=== PATIENT | male | born 1960 | race African-American/Black ===

== ENCOUNTER 2017-01-15 09:42 | Inpatient (IN) | payer BC, MEDICAID ==
[~2017-01-15] VITALS: Ht 175.3 cm; Wt 145.1 kg
[~2017-01-15 09:42] MED LIST: ABIL5; CEPH500C2 PO
[2017-01-15] MEDS ORDERED: ONDANSETRON HCL 4MG/2ML VIAL IV STA (10:52)
[2017-01-15] MEDS ORDERED: SODIUM CHLORIDE 0.9% 1,000 ML IV ONE (10:52)
[2017-01-15] MEDS ORDERED: MORPHINE SULFATE 4 MG/ML CPJ (NOT FOR IM USE) IV STA (10:52)
[2017-01-15] MEDS ORDERED: PIPERACILLIN/TAZ 3.375G PREMIX 50 ML IV ONE (11:00)
[2017-01-15] MEDS ORDERED: VANCOMYCIN 1 G PREMIX 200 ML IV ONE (11:00)
[2017-01-15 11:59] LABS: BASOPHILS % 0.5 % (0.0-2.0); EOSINOPHILS % 2.2 % (0.0-5.0); HEMATOCRIT. 30.5 % (42.0-52.0); HEMOGLOBIN. 9.7 g/dL (14.0-18.0); LYMPHOCYTES % 23.1 % (20.0-50.0); MEAN CORPUSCULAR HEMOGLOBIN 24.5 pg (28.0-32.0); MEAN CORPUSCULAR VOLUME 77.1 fL (80.0-94.0); MEAN PLATELET VOLUME 8.1 fl (7.4-10.4); MONOCYTES % 9.3 % (2.0-8.0); NEUTROPHILS % 64.9 % (40.0-76.0); PLATELET 262 x1000/uL (130-400); RED BLOOD CELL COUNT 3.96 mill/uL (4.7-6.1); RED CELL DISTRIBUTION WIDTH 17.5 % (11.6-14.6)
[2017-01-15 12:10] LABS: CARBON DIOXIDE 30 mEq/L (21-32); CHLORIDE 104 mEq/L (98-107)
[2017-01-15 12:15] LABS: INR 1.1
[2017-01-15 13:07] LABS: CLARITY URINE CLEAR (CLEAR); COLOR URINE YELLOW (YELLOW); GLUCOSE URINE NEGATIVE (NEGATIVE); KETONES URINE NEGATIVE (NEGATIVE); LEUKOCYTE ESTERASE URINE TRACE (NEGATIVE); NITRITE URINE NEGATIVE (NEGATIVE); OCCULT BLOOD URINE NEGATIVE (NEGATIVE); PH URINE 6.5 (4.5-8.0); PROTEIN URINE NEGATIVE (NEGATIVE); SPECIFIC GRAVITY URINE 1.016 (1.005-1.030)
[2017-01-15] MEDS: POTASSIUM CHLORIDE 20MEQ TABLET SR PO NR ×3 (15:10→16:30)
[2017-01-15 21:42] VITALS: BP 162/84
[2017-01-16] VITALS (7 sets, daily range): BP systolic 123–162; BP diastolic 54–84
[2017-01-16] MEDS ORDERED: LORAZEPAM 2MG/ML CPJ IV PRN
[2017-01-16] MEDS ORDERED: CLONIDINE 0.1MG TABLET PO PRN
[2017-01-16] MEDS ORDERED: ONDANSETRON HCL 4MG/2ML VIAL IV PRN
[2017-01-16] MEDS ORDERED: HYDROCODONE/ACETAMINOPHEN 5/325MG TABLET PO PRN
[2017-01-16] MEDS ORDERED: VANCOMYCIN 1 G PREMIX 200 ML IV SCH (05:00)
[2017-01-16 08:26] LABS: *AMPHETAMINES SCREEN URINE NEGATIVE (NEGATIVE); *BARBITURATES SCREEN URINE NEGATIVE (NEGATIVE); *BENZODIAZEPINES SCREEN URINE NEGATIVE (NEGATIVE); *COCAINE SCREEN URINE NEGATIVE (NEGATIVE); CANNABINOID URINE SCREEN NEGATIVE (NEGATIVE); METHADONE URINE SCREEN NEGATIVE (NEGATIVE); OPIATES URINE SCREEN PRESUMTIVE POSITIVE (NEGATIVE); PHENCYCLIDINE URINE SCREEN NEGATIVE (NEGATIVE)
[2017-01-16] MEDS ORDERED: CEPHALEXIN 500MG CAPSULE PO SCH (09:00)
[2017-01-16] MEDS: ENOXAPARIN 40MG/0.4ML SYR SUBCUT SCH ×2 (09:00→20:52)
[2017-01-16] MEDS: THIAMINE HCL 100MG TABLET PO SCH (09:03)
[2017-01-16] MEDS: ARIPIPRAZOLE 5MG TABLET PO SCH (09:03)
[2017-01-16] MEDS: MORPHINE SULFATE 4 MG/ML CPJ (NOT FOR IM USE) IV PRN ×2 (15:15→20:53)
[2017-01-16] MEDS: VANCOMYCIN 1 G PREMIX 200 ML IV SCH ×2 (15:19→23:00)
[2017-01-17] VITALS: BP 126/62
[2017-01-17 04:00] VITALS: BP 98/47
[2017-01-17] MEDS: VANCOMYCIN 1 G PREMIX 200 ML IV SCH ×2 (06:20→15:04)
[2017-01-17 08:00] VITALS: BP 161/71
[2017-01-17] MEDS: ENOXAPARIN 40MG/0.4ML SYR SUBCUT SCH (09:00)
[2017-01-17] MEDS: THIAMINE HCL 100MG TABLET PO SCH (09:55)
[2017-01-17] MEDS: ARIPIPRAZOLE 5MG TABLET PO SCH (09:56)
[2017-01-17 12:00] VITALS: BP 150/60
[2017-01-17 16:00] VITALS: BP 120/81
[2017-01-17 18:06] LABS: BASOPHILS % 0.5 % (0.0-2.0); EOSINOPHILS % 3.1 % (0.0-5.0); HEMATOCRIT. 30.5 % (42.0-52.0); HEMOGLOBIN. 9.7 g/dL (14.0-18.0); LYMPHOCYTES % 20.2 % (20.0-50.0); MEAN CORPUSCULAR HEMOGLOBIN 24.7 pg (28.0-32.0); MEAN CORPUSCULAR VOLUME 77.8 fL (80.0-94.0); MEAN PLATELET VOLUME 8.6 fl (7.4-10.4); MONOCYTES % 10.3 % (2.0-8.0); NEUTROPHILS % 65.9 % (40.0-76.0); PLATELET 281 x1000/uL (130-400); RED BLOOD CELL COUNT 3.92 mill/uL (4.7-6.1); RED CELL DISTRIBUTION WIDTH 17.7 % (11.6-14.6)
[2017-01-17 18:33] LABS: CARBON DIOXIDE 29 mEq/L (21-32); CHLORIDE 103 mEq/L (98-107)
== END 2017-01-17 22:50 | disposition home or self-care (01) | DRG 728 ==
LOC: ER 09:59 → EDBEDREQ 10:56 → EDBEDREQSVC 10:56 → 6EST 13:08 → EDBEDREQSVC 13:12 → EDBEDREQTM 13:12 → EDBEDREQ 13:12 → ENRESERV 18:19 → EDBEDREQ 21:10
PROVIDERS: ADMIT Internal Medicine; ATTEND Internal Medicine
DX: N49.2 Inflammatory disorders of scrotum (principal); E44.0 Moderate protein-calorie malnutrition; E66.01 Morbid (severe) obesity due to excess calories; E83.51 Hypocalcemia; Z68.42 Body mass index [BMI] 45.0-49.9, adult; L73.2 Hidradenitis suppurativa; E87.6 Hypokalemia; J45.909 Unspecified asthma, uncomplicated; F32.9 Major depressive disorder, single episode, unspecified; Z79.2 Long term (current) use of antibiotics; Z59.0 Homelessness; Z79.899 Other long term (current) drug therapy
CPT/HCPCS: 36415; 71010; 76870; 80048; 80053; 80305; 81001; 83605; 83735; 85025; 85610; 87040; 87086; 93005; 93976; 96361; 96365; 96366; 96367; 96375; 97162; 99285; J1650; J2270; J2405; J2543; J3370; J7030; J7050

== ENCOUNTER 2019-01-30 12:07 | Emergency (ER) | payer BC, MEDICAID ==
[~2019-01-30] VITALS: Ht 175.3 cm; Wt 159.0 kg
[~2019-01-30 12:07] MED LIST changes: -ABIL5; +ABIL5 PO; +CLOT15CR2 TOP; +IPRA3AMP9 HHN; +LOV40 SUBCUT
[2019-01-30 13:54] LABS: BASOPHILS % 0.5 % (0.0-2.0); EOSINOPHILS % 5.6 % (0.0-5.0); HEMATOCRIT. 28.2 % (42.0-52.0); HEMOGLOBIN. 9.2 g/dL (14.0-18.0); LYMPHOCYTES % 23.7 % (20.0-50.0); MEAN CORPUSCULAR HEMOGLOBIN 25.2 pg (28.0-32.0); MEAN CORPUSCULAR VOLUME 77.1 fL (80.0-94.0); MONOCYTES % 11.9 % (2.0-8.0); NEUTROPHILS % 58.3 % (40.0-76.0); PLATELET 335 x1000/uL (130-400); RED BLOOD CELL COUNT 3.65 mill/uL (4.7-6.1); RED CELL DISTRIBUTION WIDTH 17.1 % (11.6-14.6)
[2019-01-30 13:57] LABS: CLARITY URINE CLEAR (CLEAR); COLOR URINE DARK YELLOW (YELLOW); KETONES URINE TRACE (NEGATIVE); LEUKOCYTE ESTERASE URINE NEGATIVE (NEGATIVE); NITRITE URINE NEGATIVE (NEGATIVE); OCCULT BLOOD URINE NEGATIVE (NEGATIVE); PROTEIN URINE 1+ (NEGATIVE); SPECIFIC GRAVITY URINE 1.028 (1.005-1.030)
[2019-01-30 14:02] LABS: CHLORIDE 108 mEq/L (98-107)
[2019-01-30] MEDS ORDERED: POTASSIUM CHLORIDE 20MEQ TABLET SR PO ONE (15:30)
[2019-01-30 16:08] VITALS: BP 132/66
== END 2019-01-30 16:06 | disposition home or self-care (01) ==
LOC: ER 14:48
DX: L73.2 Hidradenitis suppurativa (principal); N50.89 Other specified disorders of the male genital organs; L98.499 Non-pressure chronic ulcer of skin of other sites with unspecified severity; J45.909 Unspecified asthma, uncomplicated; F31.9 Bipolar disorder, unspecified; Z79.899 Other long term (current) drug therapy
CPT/HCPCS: 36415; 76870; 81003; 93976; 99284

== ENCOUNTER 2019-02-15 22:25 | Inpatient (IN) | payer BC, MEDICAID ==
[~2019-02-15] VITALS: Ht 175.3 cm; Wt 154.2 kg
[2019-02-15] MEDS ORDERED: METHYLPREDNISOLONE SOD SUCC 125 MG/2 ML VIAL IV STA (23:43)
[2019-02-15] MEDS ORDERED: ALBUTEROL (0.083%) 2.5MG/3ML NEB HHN STA (23:43)
[2019-02-15] MEDS ORDERED: HYDROCODONE/ACETAMINOPHEN 5/325MG TABLET PO STA (23:43)
[2019-02-15] MEDS ORDERED: IPRATROPIUM BROMIDE (0.02%) 0.5MG/2.5ML NEB HHN STA (23:43)
[2019-02-16 00:06] LABS: BASOPHILS % 0.4 % (0.0-2.0); EOSINOPHILS % 3.6 % (0.0-5.0); HEMATOCRIT. 27.1 % (42.0-52.0); HEMOGLOBIN. 8.6 g/dL (14.0-18.0); LYMPHOCYTES % 19.4 % (20.0-50.0); MEAN CORPUSCULAR HEMOGLOBIN 24.7 pg (28.0-32.0); MEAN CORPUSCULAR VOLUME 77.4 fL (80.0-94.0); MEAN PLATELET VOLUME 7.4 fl (7.4-10.4); MONOCYTES % 11.6 % (2.0-8.0); PLATELET 345 x1000/uL (130-400); RED CELL DISTRIBUTION WIDTH 16.9 % (11.6-14.6)
[2019-02-16 00:09] LABS: CHLORIDE 105 mEq/L (98-107)
[2019-02-16 00:18] LABS: ETHANOL BLOOD < 10 mg/dL
[2019-02-16] MEDS ORDERED: POTASSIUM CHLORIDE 20MEQ TABLET SR PO SCH (02:00)
[2019-02-16 03:14] LABS: CLARITY URINE CLEAR (CLEAR); COLOR URINE YELLOW (YELLOW); KETONES URINE NEGATIVE (NEGATIVE); LEUKOCYTE ESTERASE URINE NEGATIVE (NEGATIVE); NITRITE URINE NEGATIVE (NEGATIVE); OCCULT BLOOD URINE NEGATIVE (NEGATIVE); PROTEIN URINE TRACE (NEGATIVE); SPECIFIC GRAVITY URINE 1.024 (1.005-1.030)
[2019-02-16 03:27] LABS: *AMPHETAMINES SCREEN URINE NEGATIVE (NEGATIVE)
[2019-02-16 03:28] LABS: *BARBITURATES SCREEN URINE NEGATIVE (NEGATIVE); *BENZODIAZEPINES SCREEN URINE NEGATIVE (NEGATIVE); *COCAINE SCREEN URINE NEGATIVE (NEGATIVE); METHADONE URINE SCREEN NEGATIVE (NEGATIVE); OPIATES URINE SCREEN PRESUMTIVE POSITIVE (NEGATIVE)
[2019-02-16 03:29] LABS: CANNABINOID URINE SCREEN NEGATIVE (NEGATIVE); PHENCYCLIDINE URINE SCREEN NEGATIVE (NEGATIVE)
[2019-02-16] MEDS ORDERED: ACETAMINOPHEN 325MG TABLET PO ONE ×2 (10:45→18:15)
[2019-02-16] MEDS ORDERED: ACETAMINOPHEN 325MG TABLET PO PRN (18:30)
[2019-02-16] MEDS ORDERED: ONDANSETRON HCL 4MG/2ML INJ IV PRN (18:30)
[2019-02-16] MEDS ORDERED: CLONIDINE 0.1MG TABLET PO PRN (18:30)
[2019-02-16] MEDS ORDERED: LORAZEPAM 0.5MG TABLET PO PRN (18:30)
[2019-02-16] MEDS ORDERED: DOCUSATE SODIUM 100MG CAPSULE PO PRN (18:30)
[2019-02-16] MEDS: AMLODIPINE 5MG TABLET PO SCH (20:08)
[2019-02-17] MEDS: HYDROCODONE/ACETAMINOPHEN 5/325MG TABLET PO PRN ×2 (00:13→10:53)
[2019-02-17 05:21] LABS: TOTAL IRON BINDING CAPACITY 159 ug/dL (250-450)
[2019-02-17 05:41] LABS: BASOPHILS % 0.3 % (0.0-2.0); EOSINOPHILS % 0.1 % (0.0-5.0); HEMATOCRIT. 26.6 % (42.0-52.0); HEMOGLOBIN. 8.6 g/dL (14.0-18.0); LYMPHOCYTES % 12.8 % (20.0-50.0); MEAN CORPUSCULAR HEMOGLOBIN 24.7 pg (28.0-32.0); MEAN CORPUSCULAR VOLUME 76.7 fL (80.0-94.0); MEAN PLATELET VOLUME 7.9 fl (7.4-10.4); NEUTROPHILS % 75.8 % (40.0-76.0); PLATELET 353 x1000/uL (130-400); RED BLOOD CELL COUNT 3.47 mill/uL (4.7-6.1)
[2019-02-17 09:30] VITALS: BP 145/65
[2019-02-17 09:53] VITALS: BP 140/60
[2019-02-17] MEDS: AMLODIPINE 5MG TABLET PO SCH (10:53)
[2019-02-17 12:00] VITALS: BP 140/69
[2019-02-17] MEDS: FERROUS SULFATE 325MG TABLET PO SCH ×2 (13:07→17:58)
[2019-02-17 16:00] VITALS: BP 145/76
[2019-02-17] MEDS: SPIRONOLACTONE 25MG TABLET PO SCH (16:04)
[2019-02-17] MEDS: FUROSEMIDE 40MG/4ML VIAL IVP SCH ×2 (16:05→22:36)
[2019-02-17] MEDS ORDERED: FUROSEMIDE 40MG/4ML VIAL IVP SCH (17:00)
[2019-02-17] MEDS: IPRATROPIUM/ALBUTEROL 0.5-3(2.5)MG/3ML NEB HHN PRN ×2 (17:27→20:22)
[2019-02-17 20:00] VITALS: BP 137/61
[2019-02-17] MEDS: VERAPAMIL HCL 80 MG TABLET PO SCH (22:37)
[2019-02-18] VITALS: BP 140/64
[2019-02-18 04:00] VITALS: BP 147/65
[2019-02-18] MEDS: FUROSEMIDE 40MG/4ML VIAL IVP SCH ×3 (07:10→22:24)
[2019-02-18] MEDS: VERAPAMIL HCL 80 MG TABLET PO SCH ×3 (07:11→17:12)
[2019-02-18 08:00] VITALS: BP 122/54
[2019-02-18] MEDS: SPIRONOLACTONE 25MG TABLET PO SCH (08:28)
[2019-02-18] MEDS: FERROUS SULFATE 325MG TABLET PO SCH ×3 (08:28→17:12)
[2019-02-18] MEDS: IPRATROPIUM/ALBUTEROL 0.5-3(2.5)MG/3ML NEB HHN PRN ×2 (09:36→17:52)
[2019-02-18] MEDS: METOLAZONE 5MG TABLET PO SCH (11:33)
[2019-02-18 12:00] VITALS: BP 133/82
[2019-02-18 16:00] VITALS: BP 140/66
[2019-02-18 20:00] VITALS: BP 137/68
[2019-02-19] VITALS (7 sets, daily range): BP systolic 107–145; BP diastolic 34–84
[2019-02-19] MEDS: VERAPAMIL HCL 80 MG TABLET PO SCH ×4 (00:16→17:25)
[2019-02-19] MEDS: HYDROCODONE/ACETAMINOPHEN 5/325MG TABLET PO PRN ×3 (00:16→14:22)
[2019-02-19] MEDS: FUROSEMIDE 40MG/4ML VIAL IVP SCH ×3 (05:49→22:00)
[2019-02-19] MEDS: FERROUS SULFATE 325MG TABLET PO SCH ×3 (09:18→17:20)
[2019-02-19] MEDS: SPIRONOLACTONE 25MG TABLET PO SCH (09:19)
[2019-02-19] MEDS: METOLAZONE 5MG TABLET PO SCH (09:19)
[2019-02-19 10:30] LABS: BASOPHILS % 0.8 % (0.0-2.0); EOSINOPHILS % 2.9 % (0.0-5.0); HEMATOCRIT. 30.6 % (42.0-52.0); HEMOGLOBIN. 9.9 g/dL (14.0-18.0); LYMPHOCYTES % 16.8 % (20.0-50.0); MEAN CORPUSCULAR VOLUME 76.9 fL (80.0-94.0); MEAN PLATELET VOLUME 7.9 fl (7.4-10.4); MONOCYTES % 10.9 % (2.0-8.0); NEUTROPHILS % 68.6 % (40.0-76.0); PLATELET 396 x1000/uL (130-400); RED BLOOD CELL COUNT 3.98 mill/uL (4.7-6.1); RED CELL DISTRIBUTION WIDTH 16.9 % (11.6-14.6)
[2019-02-19 11:07] LABS: CHLORIDE 93 mEq/L (98-107)
[2019-02-19] MEDS ORDERED: POTASSIUM CHLORIDE 20MEQ TABLET SR PO SCH (13:00)
== END 2019-02-19 22:15 | DRG 291 ==
LOC: ER 22:25 → 6EST 02-16 16:49 → EDBEDREQTM 02-16 17:25 → EDBEDREQ 02-16 17:27 → ENRESERV 02-17 07:26
PROVIDERS: ADMIT Internal Medicine; ATTEND Internal Medicine
DX: I11.0 Hypertensive heart disease with heart failure (principal); E43 Unspecified severe protein-calorie malnutrition; R45.851 Suicidal ideations; Z68.43 Body mass index [BMI] 50.0-59.9, adult; I50.33 Acute on chronic diastolic (congestive) heart failure; D50.9 Iron deficiency anemia, unspecified; E66.01 Morbid (severe) obesity due to excess calories; F20.9 Schizophrenia, unspecified; E87.6 Hypokalemia; F32.9 Major depressive disorder, single episode, unspecified; E11.65 Type 2 diabetes mellitus with hyperglycemia; J44.9 Chronic obstructive pulmonary disease, unspecified; N50.89 Other specified disorders of the male genital organs; Z59.0 Homelessness; Z79.899 Other long term (current) drug therapy
CPT/HCPCS: 36415; 71045; 76870; 80048; 80320; 82728; 83036; 83540; 83550; 83735; 83880; 84484; 93005; 93306; 93976; 94640; 96374; 99285; C1893; J1940; J2930; J7611; J7620; G0480

== ENCOUNTER 2019-06-01 13:48 | Inpatient (IN) | payer MEDICARE, MEDICAID ==
[~2019-06-01] VITALS: Ht 176.5 cm; Wt 159.7 kg
[2019-06-01] MEDS ORDERED: ACETAMINOPHEN 325MG TABLET PO STA (17:00)
[2019-06-01 17:20] LABS: CLARITY URINE CLEAR (CLEAR); COLOR URINE DARK YELLOW (YELLOW); KETONES URINE TRACE (NEGATIVE); LEUKOCYTE ESTERASE URINE TRACE (NEGATIVE); NITRITE URINE NEGATIVE (NEGATIVE); OCCULT BLOOD URINE NEGATIVE (NEGATIVE); PH URINE 5.5 (4.5-8.0); PROTEIN URINE TRACE (NEGATIVE); SPECIFIC GRAVITY URINE 1.023 (1.005-1.030)
[2019-06-01 17:33] LABS: BASOPHILS % 0.9 % (0.0-2.0); EOSINOPHILS % 3.1 % (0.0-5.0); HEMATOCRIT. 32.3 % (42.0-52.0); HEMOGLOBIN. 10.4 g/dL (14.0-18.0); LYMPHOCYTES % 25.3 % (20.0-50.0); MEAN CORPUSCULAR HEMOGLOBIN 25.4 pg (28.0-32.0); MEAN CORPUSCULAR VOLUME 78.7 fL (80.0-94.0); MEAN PLATELET VOLUME 7.7 fl (7.4-10.4); NEUTROPHILS % 60.7 % (40.0-76.0); PLATELET 377 x1000/uL (130-400); RED BLOOD CELL COUNT 4.11 mill/uL (4.7-6.1); RED CELL DISTRIBUTION WIDTH 17.6 % (11.6-14.6)
[2019-06-01 17:36] LABS: CHLORIDE 105 mEq/L (98-107)
[2019-06-01] MEDS ORDERED: PIPERACILLIN/TAZOBACTAM 3.375GM/50ML PREMIX IV ONE (20:15)
[2019-06-01] MEDS ORDERED: PIPERACILLIN/TAZ 3.375G PREMIX 50 ML IV NR (20:55)
[2019-06-01] MEDS ORDERED: CLONIDINE 0.1MG TABLET PO PRN (23:15)
[2019-06-01] MEDS ORDERED: DOCUSATE SODIUM 100MG CAPSULE PO PRN (23:15)
[2019-06-01] MEDS ORDERED: ACETAMINOPHEN 325MG TABLET PO PRN (23:15)
[2019-06-01] MEDS ORDERED: PIPERACILLIN/TAZ 3.375G PREMIX 50 ML IV SCH (23:15)
[2019-06-01] MEDS ORDERED: MAGNESIUM/ALUMINUM HYDROXIDE/SIMETHICONE 30ML UDC PO PRN (23:15)
[2019-06-01] MEDS ORDERED: ONDANSETRON HCL 4MG/2ML INJ IV PRN (23:15)
[2019-06-02] VITALS (7 sets, daily range): BP systolic 123–168; BP diastolic 68–88
[2019-06-02] MEDS ORDERED: FURO40TA5 (00:08)
[2019-06-02] MEDS ORDERED: VANCOMYCIN 2,000 MG in DEXT 5% WATER 500 ML IV SCH (04:00)
[2019-06-02] MEDS: SODIUM CHLORIDE 0.45% 1,000 ML IV SCH (04:17)
[2019-06-02] MEDS ORDERED: PIPERACILLIN/TAZ 3.375G PREMIX 50 ML IV SCH (06:00)
[2019-06-02] MEDS: MORPHINE SULFATE 2 MG/ML CPJ (NOT FOR IM USE) IV PRN ×3 (06:43→23:40)
[2019-06-02] MEDS ORDERED: OXYCODONE HCL/ACETAMINOPHEN 5/325MG TABLET PO PRN (11:45)
[2019-06-02] MEDS ORDERED: DIPHENHYDRAMINE 50MG/ML VIAL IV PRN (12:15)
[2019-06-02 15:48] LABS: CHLORIDE 102 mEq/L (98-107)
[2019-06-02 15:54] LABS: BASOPHILS % 0.5 % (0.0-2.0); EOSINOPHILS % 3.7 % (0.0-5.0); HEMATOCRIT. 30.2 % (42.0-52.0); LYMPHOCYTES % 17.9 % (20.0-50.0); MEAN CORPUSCULAR VOLUME 78.7 fL (80.0-94.0); MEAN PLATELET VOLUME 8.1 fl (7.4-10.4); MONOCYTES % 10.8 % (2.0-8.0); NEUTROPHILS % 67.1 % (40.0-76.0); PLATELET 325 x1000/uL (130-400); RED BLOOD CELL COUNT 3.84 mill/uL (4.7-6.1); RED CELL DISTRIBUTION WIDTH 17.5 % (11.6-14.6)
[2019-06-02] MEDS: PIPERACILLIN/TAZOBACTAM 3.375 G in DEXT 5% WATER 100 ML IV SCH ×2 (15:55→21:12)
[2019-06-02] MEDS ORDERED: CHLORHEXIDINE GLUCONATE 4% EXTERNAL USE TOP NR (17:00)
[2019-06-02] MEDS: VANCOMYCIN 1 G PREMIX 200 ML IV SCH (18:46)
[2019-06-02] MEDS: CHLORHEXIDINE GLUCONATE 4% EXTERNAL USE TOP SCH (20:41)
[2019-06-03] VITALS: BP 161/93
[2019-06-03] MEDS: MORPHINE SULFATE 2 MG/ML CPJ (NOT FOR IM USE) IV PRN ×2 (03:37→09:59)
[2019-06-03 04:00] VITALS: BP 177/88
[2019-06-03] MEDS: SODIUM CHLORIDE 0.45% 1,000 ML IV SCH (05:31)
[2019-06-03] MEDS: PIPERACILLIN/TAZOBACTAM 3.375 G in DEXT 5% WATER 100 ML IV SCH ×2 (05:31→13:17)
[2019-06-03] MEDS: VANCOMYCIN 1 G PREMIX 200 ML IV SCH (06:44)
[2019-06-03 08:00] VITALS: BP 129/69
[2019-06-03] MEDS: CHLORHEXIDINE GLUCONATE 4% EXTERNAL USE TOP SCH ×2 (08:39→13:17)
[2019-06-03] MEDS ORDERED: ARIPIPRAZOLE 5MG TABLET PO SCH (11:30)
[2019-06-03] MEDS ORDERED: HYDR-3281 MT (11:40)
[2019-06-03] MEDS ORDERED: SULF1TAB47 MT (11:40)
[2019-06-03 12:00] VITALS: BP 128/64
== END 2019-06-03 14:40 | disposition home health service (06) | DRG 607 ==
LOC: ER 13:48 → 6EST 22:38 → EDBEDREQ 22:56 → EDBEDREQSVC 22:58 → ENRESERV 06-02 00:03
PROVIDERS: ADMIT Hospitalist; ATTEND Hospitalist
DX: L73.2 Hidradenitis suppurativa (principal); Z68.43 Body mass index [BMI] 50.0-59.9, adult; N49.2 Inflammatory disorders of scrotum; J45.909 Unspecified asthma, uncomplicated; I10 Essential (primary) hypertension; F32.9 Major depressive disorder, single episode, unspecified; E66.01 Morbid (severe) obesity due to excess calories
CPT/HCPCS: 36415; 71045; 76870; 80053; 81003; 85025; 93976; 99285; J2270; J2543; J3370; J7060

== ENCOUNTER 2019-08-07 22:15 | Inpatient (IN) | payer MEDICARE, MEDICAID ==
[~2019-08-07] VITALS: Ht 175.3 cm; Wt 178.3 kg
[~2019-08-07 22:15] MED LIST changes: -CEPH500C2 PO; +FURO40TA5; +HYDR-3281 MT; -IPRA3AMP9 HHN; -LOV40 SUBCUT; +SULF1TAB47 MT
[2019-08-07] MEDS ORDERED: KETOROLAC 30MG/ML VIAL IV STA (22:46)
[2019-08-08 00:10] LABS: BASOPHILS % 0.6 % (0.0-2.0); HEMATOCRIT. 28.9 % (42.0-52.0); HEMOGLOBIN. 9.3 g/dL (14.0-18.0); LYMPHOCYTES % 18.4 % (20.0-50.0); MEAN CORPUSCULAR HEMOGLOBIN 25.3 pg (28.0-32.0); MEAN CORPUSCULAR VOLUME 78.7 fL (80.0-94.0); MEAN PLATELET VOLUME 8.8 fl (7.4-10.4); MONOCYTES % 14.6 % (2.0-8.0); NEUTROPHILS % 62.4 % (40.0-76.0); PLATELET 296 x1000/uL (130-400); RED BLOOD CELL COUNT 3.67 mill/uL (4.7-6.1); RED CELL DISTRIBUTION WIDTH 17.4 % (11.6-14.6)
[2019-08-08 00:15] LABS: PROTHROMBIN TIME 10.8 sec (9.6-11.0)
[2019-08-08 00:20] LABS: CHLORIDE 104 mEq/L (98-107)
[2019-08-08] MEDS ORDERED: SODIUM CHLORIDE 0.9% 1,000 ML IV ONE (02:15)
[2019-08-08] MEDS ORDERED: CLINDAMYCIN 900 MG in DEXTROSE 5% WATER 50 ML IV ONE (02:30)
[2019-08-08] MEDS ORDERED: IOHEXOL-300 100 ML BOTTLE ONE ×2 (04:06→04:07)
[2019-08-08] MEDS ORDERED: ONDANSETRON HCL 4MG/2ML INJ IV ONE (04:30)
[2019-08-08] MEDS ORDERED: ETOMIDATE 2MG/ML 10ML VIAL IV ONE (04:30)
[2019-08-08] MEDS ORDERED: MIDAZOLAM HCL 2 MG/2 ML VIAL IV ONE (04:30)
[2019-08-08] MEDS ORDERED: PIPERACILLIN/TAZ 3.375G PREMIX 50 ML IV ONE (06:15)
[2019-08-08] MEDS ORDERED: IPRATROPIUM/ALBUTEROL 0.5-3(2.5)MG/3ML NEB ORI PRN (07:30)
[2019-08-08] MEDS ORDERED: ONDANSETRON HCL 4MG/2ML INJ IV PRN (07:30)
[2019-08-08] MEDS ORDERED: MAGNESIUM/ALUMINUM HYDROXIDE/SIMETHICONE 30ML UDC PO PRN (07:30)
[2019-08-08] MEDS ORDERED: ZOLPIDEM TARTRATE 5MG TABLET PO PRN (07:30)
[2019-08-08] MEDS ORDERED: ACETAMINOPHEN 325MG TABLET PO PRN ×2 (07:30)
[2019-08-08] MEDS ORDERED: NITROGLYCERIN 0.4MG TABLET SL SL PRN (07:30)
[2019-08-08] MEDS ORDERED: PIPERACILLIN/TAZ 3.375G PREMIX 50 ML IV SCH (07:30)
[2019-08-08] MEDS ORDERED: GUAIFENESIN 200MG/10ML SUGAR FREE UDC PO PRN (07:30)
[2019-08-08] MEDS ORDERED: NA PHOS,M-B/NA PHOS,DI-BA ENEMA 118ML PR PRN (07:30)
[2019-08-08] MEDS ORDERED: ENOXAPARIN 40MG/0.4ML SYR SUBCUT SCH (07:30)
[2019-08-08 08:00] VITALS: BP 153/73
[2019-08-08 09:19] VITALS: BP 153/73
[2019-08-08] MEDS: ENOXAPARIN 40MG/0.4ML SYR SUBCUT SCH ×2 (10:00→20:48)
[2019-08-08] MEDS ORDERED: VANCOMYCIN 2,000 MG in DEXT 5% WATER 500 ML IV SCH (10:00)
[2019-08-08] MEDS: ZINC SULFATE 220 MG ( 50 ) CAPSULE PO SCH (10:46)
[2019-08-08] MEDS: DOCUSATE SODIUM 100MG CAPSULE PO PRN (10:46)
[2019-08-08] MEDS: ASCORBIC ACID 500 MG TABLET PO SCH ×2 (10:46→20:46)
[2019-08-08] MEDS: CLONIDINE 0.1MG TABLET PO PRN (11:30)
[2019-08-08] MEDS: DILTIAZEM HCL 60MG TABLET PO SCH ×2 (11:32→17:16)
[2019-08-08 12:00] VITALS: BP 163/75
[2019-08-08] MEDS: KETOROLAC 15MG/ML VIAL IV PRN ×2 (13:43→20:38)
[2019-08-08] MEDS: PIPERACILLIN/TAZOBACTAM 3.375 G in DEXT 5% WATER 100 ML IV SCH ×2 (14:57→18:16)
[2019-08-08 20:00] VITALS: BP 137/61
[2019-08-08] MEDS: ARIPIPRAZOLE 5MG TABLET PO SCH (20:43)
[2019-08-08] MEDS ORDERED: VANCOMYCIN 1250MG in DEXTROSE 5% WATER 250ML IV SCH (21:00)
[2019-08-08] MEDS: CLINDAMYCIN HCL 150MG CAPSULE PO SCH (21:46)
[2019-08-08] MEDS: TRAMADOL 50MG TABLET PO PRN (21:47)
[2019-08-09] VITALS: BP 134/64
[2019-08-09] MEDS: KETOROLAC 15MG/ML VIAL IV PRN ×3 (03:18→21:15)
[2019-08-09 04:00] VITALS: BP 170/100
[2019-08-09] MEDS: DILTIAZEM HCL 60MG TABLET PO SCH ×4 (05:01→17:06)
[2019-08-09] MEDS: CLINDAMYCIN HCL 150MG CAPSULE PO SCH ×3 (05:01→21:14)
[2019-08-09 07:08] LABS: CHLORIDE 106 mEq/L (98-107)
[2019-08-09 07:16] LABS: TOTAL IRON BINDING CAPACITY 264 ug/dL (250-450)
[2019-08-09 07:20] LABS: FOLIC ACID (FOLATE) SERUM 8.8 ng/mL (>5.38)
[2019-08-09 08:00] VITALS: BP 152/88
[2019-08-09] MEDS: ENOXAPARIN 40MG/0.4ML SYR SUBCUT SCH ×2 (08:26→21:00)
[2019-08-09] MEDS: ASCORBIC ACID 500 MG TABLET PO SCH ×2 (08:27→21:14)
[2019-08-09] MEDS: ZINC SULFATE 220 MG ( 50 ) CAPSULE PO SCH (08:27)
[2019-08-09] MEDS: TRAMADOL 50MG TABLET PO PRN ×2 (08:51→15:13)
[2019-08-09 12:00] VITALS: BP 154/69
[2019-08-09] MEDS ORDERED: KETOROLAC 30MG/ML VIAL IV PRN (13:15)
[2019-08-09] MEDS: DOCUSATE SODIUM 100MG CAPSULE PO PRN (15:46)
[2019-08-09 16:00] VITALS: BP 154/84
[2019-08-09 20:00] VITALS: BP 138/65
[2019-08-09] MEDS: ARIPIPRAZOLE 5MG TABLET PO SCH (21:14)
[2019-08-10] VITALS: BP 154/83
[2019-08-10] MEDS: DILTIAZEM HCL 60MG TABLET PO SCH ×5 (00:35→23:37)
[2019-08-10] MEDS: KETOROLAC 15MG/ML VIAL IV PRN ×4 (03:25→19:01)
[2019-08-10 04:00] VITALS: BP 141/80
[2019-08-10] MEDS: CLINDAMYCIN HCL 150MG CAPSULE PO SCH ×3 (05:18→21:13)
[2019-08-10 08:00] VITALS: BP 149/69
[2019-08-10] MEDS: ASCORBIC ACID 500 MG TABLET PO SCH ×2 (08:26→21:12)
[2019-08-10] MEDS: ZINC SULFATE 220 MG ( 50 ) CAPSULE PO SCH (08:26)
[2019-08-10] MEDS: ENOXAPARIN 40MG/0.4ML SYR SUBCUT SCH ×2 (08:27→21:12)
[2019-08-10 12:00] VITALS: BP 149/62
[2019-08-10 16:00] VITALS: BP 167/82
[2019-08-10] MEDS: TRAMADOL 50MG TABLET PO PRN ×2 (16:48→22:56)
[2019-08-10 20:00] VITALS: BP 142/70
[2019-08-10] MEDS: ARIPIPRAZOLE 5MG TABLET PO SCH (21:12)
[2019-08-11] VITALS (7 sets, daily range): BP systolic 127–175; BP diastolic 57–92
[2019-08-11] MEDS: KETOROLAC 15MG/ML VIAL IV PRN ×4 (01:17→23:42)
[2019-08-11] MEDS: DILTIAZEM HCL 60MG TABLET PO SCH ×4 (06:14→23:43)
[2019-08-11] MEDS: CLINDAMYCIN HCL 150MG CAPSULE PO SCH (06:14)
[2019-08-11] MEDS: ZINC SULFATE 220 MG ( 50 ) CAPSULE PO SCH (08:54)
[2019-08-11] MEDS: ENOXAPARIN 40MG/0.4ML SYR SUBCUT SCH ×2 (08:54→21:00)
[2019-08-11] MEDS: ASCORBIC ACID 500 MG TABLET PO SCH ×2 (08:54→20:50)
[2019-08-11] MEDS: CLONIDINE 0.1MG TABLET PO PRN (09:02)
[2019-08-11 13:06] LABS: A/G RATIO 0.4 (0.7-1.7); ALBUMIN 2.3 g/dL (2.9-4.4); ALPHA-1-GLOBULIN 0.3 g/dL (0.0-0.4); ALPHA-2-GLOBULIN 0.7 g/dL (0.4-1.0); BETA GLOBULIN 1.1 g/dL (0.7-1.3); GAMMA GLOBULINS 3.5 g/dL (0.4-1.8); GLOBULIN TOTAL 5.6 g/dL (2.2-3.9); TOTAL PROTEIN SERUM 7.9 g/dL (6.0-8.5)
[2019-08-11] MEDS: ARIPIPRAZOLE 5MG TABLET PO SCH (20:50)
[2019-08-12] VITALS: BP 178/83
[2019-08-12] MEDS: CLONIDINE 0.1MG TABLET PO PRN (01:40)
[2019-08-12 04:00] VITALS: BP 155/69
[2019-08-12] MEDS: KETOROLAC 15MG/ML VIAL IV PRN ×2 (05:51→11:50)
[2019-08-12] MEDS: DILTIAZEM HCL 60MG TABLET PO SCH ×2 (05:52→11:47)
[2019-08-12 08:00] VITALS: BP 135/64
[2019-08-12] MEDS: ASCORBIC ACID 500 MG TABLET PO SCH (09:00)
[2019-08-12] MEDS: ENOXAPARIN 40MG/0.4ML SYR SUBCUT SCH (09:00)
[2019-08-12] MEDS: ZINC SULFATE 220 MG ( 50 ) CAPSULE PO SCH (09:00)
[2019-08-12 12:00] VITALS: BP 145/75
[2019-08-12 16:00] VITALS: BP 145/75
== END 2019-08-12 16:48 | disposition hospice, inpatient (51) | DRG 727 ==
LOC: ER 22:15 → 6EST 08-08 05:23 → SUPCPDRO 08-08 07:30 → ENRESERV 08-08 07:34 → 6EST 08-08 09:10
PROVIDERS: ADMIT Internal Medicine; ATTEND Internal Medicine
DX: N49.2 Inflammatory disorders of scrotum (principal); E43 Unspecified severe protein-calorie malnutrition; Z68.43 Body mass index [BMI] 50.0-59.9, adult; N43.3 Hydrocele, unspecified; J45.909 Unspecified asthma, uncomplicated; I10 Essential (primary) hypertension; N50.89 Other specified disorders of the male genital organs; D64.9 Anemia, unspecified; F32.9 Major depressive disorder, single episode, unspecified; E66.01 Morbid (severe) obesity due to excess calories; Z79.899 Other long term (current) drug therapy
CPT/HCPCS: 36415; 74177; 80048; 80053; 82607; 82746; 83036; 83540; 83550; 84155; 84165; 85025; 93970; 97110; 97116; 97162; 97166; 97530; 97535; 99285; J1650; J1885; J2405; J2543; J3370; J3490; J7030; J7060; Q9967